=== PATIENT | male | born 1995 | race Caucasian/White ===

== ENCOUNTER 2021-05-27 11:31 | Emergency (ER) | payer SELFPAY ==
[~2021-05-27] VITALS: Ht 180.3 cm; Wt 140.2 kg
--- NOTE | 2021-05-27 11:44 | NUR ---
BIB MOTHER C/O R SIDED WEAKNESS, R EYE BLURRING ONSET SYMPTOMS 1030 AT WORK. PT ATTCHED THE MONITOR. DR SHIPLEY AT BEDSIDE PERFORMING STROKE ASSESSMENT.
--- NOTE | 2021-05-27 11:48 | NUR ---
IV ESTABLISH L AC 18G, LABS DRAWN AND COLLECTED.
--- NOTE | 2021-05-27 11:55 | NUR ---
URINE COLLECTED AND SENT, PT WAS ABLE TO AMBULATE TO THE RESTROOM.
[2021-05-27 12:17] LABS: BASOPHILS % (AUTO) 0.8 % (0.0-2.0); EOSINOPHILS % (AUTO) 1.1 % (0.0-6.0); HEMATOCRIT 49 % (39-51); HEMOGLOBIN 16.4 g/dL (13.5-17.5); LYMPHOCYTES # (AUTO) 1.6 K/uL (0.8-4.8); LYMPHOCYTES % (AUTO) 24.7 % (20.0-44.0); MEAN CORPUSCULAR HGB CONC 34 g/dl (31.0-36.0); MEAN CORPUSCULAR VOLUME 87 fL (80-96); MONOCYTES # (AUTO) 0.4 K/uL (0.1-1.30); MONOCYTES % (AUTO) 6.9 % (2.0-12.0); NEUTROPHILS # (AUTO) 4.2 K/uL (1.8-8.9); NEUTROPHILS % (AUTO) 66.5 % (43.0-81.0); PLATELET COUNT (AUTO) 182 K/uL (150-450); WHITE BLOOD COUNT (AUTO) 6.4 K/uL (4.3-11.0)
--- NOTE | 2021-05-27 12:22 | NUR ---
VISUAL ACUITY EXAM PERFORMED BY EMT
[2021-05-27 13:57] LABS: CALCIUM, SERUM 9.2 mg/dL (8.5-10.1); CARBON DIOXIDE 23 mmol/L (21-32); CHLORIDE 104 mmol/L (98-107); CREATININE 1.2 mg/dL (0.6-1.3); GLUCOSE 111 mg/dL (74-106); POTASSIUM 3.7 mmol/L (3.5-5.1); SODIUM SERUM 140 mmol/L (136-145); UREA NITROGEN, BLOOD 13 mg/dL (7-18)
[2021-05-27] MEDS ORDERED: IOHEXOL-350 100 ML VIAL IV ONE (14:20)
[2021-05-27] MEDS ORDERED: IV NS 0.9% 250 ML IV ONE (14:21)
[2021-05-27] MEDS ORDERED: CT SWABBABLE VALVE TRANS SET 1 EA INFUS.SET MC ONE (14:21)
[2021-05-27 16:06] VITALS: BP 144/89
--- NOTE | 2021-05-27 16:06 | NUR ---
IV removed. Catheter intact and site benign. Pressure and 4x4 applied to site. No bleeding noted.Patient discharged to home in stable condition. Written and verbal after care instructions given. Patient verbalizes understanding of instruction.
== END 2021-05-27 16:06 | disposition home or self-care (01) ==
LOC: ER 11:34
DX: R20.2 Paresthesia of skin (principal); R94.31 Abnormal electrocardiogram [ECG] [EKG]; Z20.822 Contact with and (suspected) exposure to COVID-19
CPT/HCPCS: 36415; 70450; 70496; 70498; 71045; 80048; 80307; 84484; 85025; 85730; 87426; 93005; 99285; C9803; J7050; Q9967